=== PATIENT | female | born 1950 | race Caucasian/White ===

== ENCOUNTER 2017-07-31 03:23 | Emergency (ER) | payer OTHER ==
[~2017-07-31] VITALS: Ht 167.6 cm; Wt 88.6 kg
[~2017-07-31 03:23] MED LIST: BENZ100C70 PO; PRED20TA PO; SODI44SP11 NS
[2017-07-31 03:33] VITALS: Ht 167.6 cm; Wt 88.6 kg
[2017-07-31] MEDS ORDERED: ACETAMINOPHEN 325 MG TAB PO ONE (08:00)
--- NOTE | 2017-07-31 08:44 | RADRPT ---
PROCEDURE: US Lower extremity Venous. CLINICAL INDICATION: Left leg pain and swelling. TECHNIQUE: Multiple sonographic images of the left lower extremity deep venous system was obtained utilizing arreguin scale, color-flow, compressive sonography and doppler imaging with augmentation. COMPARISON: None. FINDINGS: There is normal compressibility, phasicity and Doppler flow within the left common femoral, femoral and popliteal veins. Visualized portions of the calf veins are patent. IMPRESSION: No sonographic evidence for deep venous thrombosis in the left leg. RPTAT:AAJJ Physician Shira Date Time Electronically viewed and signed by Physician Shira on 07/31/2017 08:43 /
[2017-07-31] MEDS ORDERED: ACET500C5 PO (08:57)
--- NOTE | 2017-07-31 17:06 | ERD ---
ER Documentation Chief Complaint Chief Complaint left leg muscular pain per patient verbatim HPI This 66-year-old female with history of diastolic heart failure, arthritis, and eczema present ED with left leg pain. Patient stated that she has been having this pain on and off for about a year, but yesterday the pain got much worse. She was walking with a limp yesterday. She describes pain as deep inside her muscle, feels like a vice pay station department manager is squeezing on it. The pain is mainly located in the posterior left knee and left calf. The pain is worse at night. Denies fever or chills. Denies shortness of breath. Denies injury. ROS All systems reviewed and are negative except as per history of present illness. Medications Home Meds Active Scripts Acetaminophen* (Tylophen*) 500 Mg Capsule, 1 CAP PO Q6H Y for PAIN AND OR ELEVATED TEMP, #20 CAP Prov:NAVID ROCA. BELT TENDER 07/31/17 Prednisone* (Prednisone*) 20 Mg Tab, 60 MG PO DAILY for 4 Days, TAB Prov:NAVID ROCA. BELT TENDER 02/26/15 Benzonatate* (Tessalon Perle*) 100 Mg Capsule, 200 MG PO Q8H Y for COUGH, #30 CAP Prov:NAVID ROCA. BELT TENDER 02/26/15 Sodium Chloride (Saline Nasal Spencer) 45 Ml Spencer, 2 SPRAY NS Q2H Y for NASAL CONGESTION, #1 BOT Prov:NAVID ROCA. BELT TENDER 02/26/15 Allergies Allergies: Coded Allergies: Penicillins (Verified Allergy, Unknown, 07/31/17) PMhx/Soc Hx Alcohol Use: No Hx Substance Use: No Hx Tobacco Use: No Smoking Status: Never smoker Physical Exam Vitals Vital Signs Date Time Temp Pulse Resp B/P Pulse Ox O2 Delivery O2 Flow Rate FiO2 07/31/17 03:33 97.8 66 18 136/66 98 Physical Exam General: Well-developed, well-nourished, conscious and coherent, in no distress Skin: Warm and dry without rash, good texture and turgor Head: Normocephalic without evidence of trauma Eyes: Sclera and conjunctivae normal; pupils equal, round, and reactive to light; extraocular movements are intact Chest: Normal AP diameter. Good expansion without retractions. Nontender. Lungs are clear to auscultate bilaterally with good tidal volume Heart: Regular rate and rhythm. No murmur, rub, or gallops heard Abdomen: Soft and nontender without masses, guarding, or rebound. Bowel sounds are active. No hepatosplenomegaly Extremities: Left lower extremity nontender. Full range of motion. Good strength bilaterally. No clubbing, cyanosis, erythema, or edema. Peripheral pulses are intact. Sensation intact Neuro: Alert and oriented 4, GCS 15. Cranial nerves grossly intact. Motor and sensory exams nonfocal. Moves all extremities. Speech clear. Gait normal Results 24 hrs Current Medications Medications (Trade) Dose Ordered Sig/Silvia Route PRN Reason Start Time Stop Time Status Last Admin Dose Admin Acetaminophen (Tylenol Tab) 650 mg ONCE ONCE PO 07/31/17 08:00 07/31/17 08:01 DC 07/31/17 07:49 Procedures/MDM Well-appearing 66-year-old female presented ED was left lower extremity pain. Patient denies any injuries, the left lower extremity is nontender, I doubt fractures or dislocations. Doppler ultrasound was obtained to rule out DVT. Doppler ultrasound showed negative DVT. It is uncertain the cause of patient's leg pain at this time, will have patient follow-up with her PCP for further evaluation. Patient appears well, stable for discharge and outpatient management. Medical decision making shared with patient and family. Education provided to patient and family. Patient and family expressed understanding of the plan. Medications on discharge: Tylenol. Follow-up: Primary care provider in 2-3 days or return to ED if worse. Disclaimer: Inadvertent spelling and grammatical errors are likely due to EHR/ dictation software use and do not reflect on the overall quality of patient care. Also, please note that the electronic time recorded on this note does not necessarily reflect the actual time of the patient encounter. Departure Diagnosis: Primary Impression: Left leg pain Condition: Stable Patient Instructions: Complementary Care for Pain, Knee Pain, Uncertain Cause Additional Instructions: Call your primary care doctor TOMORROW for an appointment during the next 2-3 days.See the doctor sooner or return here if your condition worsens before your appointment time. NAVID ROCA NP Jul 31, 2017 17:06
== END 2017-07-31 09:18 | disposition home or self-care (01) ==
LOC: FTE 03:23
DX: M79.605 Pain in left leg (principal)
CPT/HCPCS: 93971; Z7502; Z7610; 99283

== ENCOUNTER 2017-10-07 02:21 | Emergency (ER) | END 2017-10-07 04:40 | disposition home or self-care (01) ==

== ENCOUNTER 2017-10-11 02:12 | Emergency (ER) | END 2017-10-11 07:20 | disposition home or self-care (01) ==

== ENCOUNTER 2017-11-01 21:26 | Emergency (ER) | END 2017-11-02 02:47 | disposition left against medical advice (07) ==